=== PATIENT | female | born 1990 | race Caucasian/White ===

== ENCOUNTER 2017-07-01 11:46 | Outpatient (CLI) | payer MEDICAID ==
[~2017-07-01] VITALS: Ht 157.5 cm; Wt 88.4 kg
[2017-07-01 12:42] VITALS: BP 120/80; PULSE 75; RESP 18; Ht 157.5 cm; Wt 88.4 kg
[2017-07-01] MEDS ORDERED: PREN-93 PO (12:46)
[2017-07-01] MEDS ORDERED: LABE100T3 PO (12:46)
[2017-07-01] MEDS ORDERED: ASPI81TA3 PO (12:47)
[2017-07-01] MEDS ORDERED: FER325 PO (12:47)
[2017-07-01 13:12] LABS: ADD UMIC NO; UR ASCORBIC ACID 40 mg/dL (NEGATIVE); UR BILIRUBIN (Dip) NEGATIVE (NEGATIVE); UR BLOOD (Dip) NEGATIVE (NEGATIVE); UR CLARITY SLIGHTLY CLOUDY (CLEAR); UR COLOR YELLOW (YELLOW); UR GLUCOSE (Dip) NEGATIVE (NEGATIVE); UR KETONES (Dip) NEGATIVE (NEGATIVE); UR LEUKOCYTE ESTERASE (Dip) NEGATIVE Leu/ul (NEGATIVE); UR MUCUS FEW /HPF (NONE SEEN); UR NITRITE (Dip) NEGATIVE (NEGATIVE); UR RBC 1 /HPF (0-5); UR SQUAMOUS EPITHELIAL CELL FEW /HPF (FEW); UR TOTAL PROTEIN (Dip) NEGATIVE (NEGATIVE); UR UROBILINOGEN (Dip) NEGATIVE (NEGATIVE)
[2017-07-01 14:29] LABS: BASOPHILS % 0.4 % (0.0-2.0); EOSINOPHILS # 0.1 10^3/ul (0.0-0.5); EOSINOPHILS % 1.1 % (0.0-7.0); HEMATOCRIT 33.6 % (37.0-47.0); HEMOGLOBIN 11.3 g/dl (12.0-16.0); LYMPHOCYTES % 18.3 % (15.0-51.0); MEAN CORPUSCULAR HEMOGLOBIN 29.9 pg (29.0-33.0); MEAN CORPUSCULAR HGB CONC 33.6 g/dl (32.0-37.0); MEAN CORPUSCULAR VOLUME 88.9 fl (82.0-101.0); MONOCYTE # 0.8 10^3/ul (0.3-0.9); MONOCYTES % 7.3 % (0.0-11.0); NEUTROPHIL # 7.6 10^3/ul (1.6-7.5); NEUTROPHILS % 71.3 % (39.0-77.0); PLATELET COUNT 191 10^3/UL (140-415); RED BLOOD COUNT 3.78 10^6/ul (4.20-5.40); RED CELL DISTRIBUTION WIDTH 13.8 % (11.5-14.5); WHITE BLOOD COUNT 10.7 10^3/ul (4.8-10.8)
[2017-07-01 14:49] LABS: INR 0.9; PROTIME 12.2 Sec (11.9-14.9)
[2017-07-01 14:50] LABS: PARTIAL THROMBOPLASTIN TIME 28.1 Sec (25.0-35.0)
[2017-07-01 15:09] LABS: ALBUMIN 3.9 g/dl (3.3-4.9); ALBUMIN/GLOBULIN RATIO 1.14; BILIRUBIN,INDIRECT 0.1 mg/dl (0-1.1); BILIRUBIN,TOTAL 0.1 mg/dl (0.2-1.3); CALCIUM 9.5 mg/dl (8.4-10.2); CREATININE 0.47 mg/dl (0.44-1.00); POTASSIUM 3.6 mmol/L (3.5-5.1); TOTAL PROTEIN 7.3 g/dl (6.1-8.1); URIC ACID 3.5 mg/dl (3.1-7.9)
--- NOTE | 2017-07-01 15:42 | PN ---
Triage Information Date/Time Reason for visit: Sent in from clinic for observation of elevated elevated blood pressure Weeks of Gestation 32 /Para 1 para 0 Diabetes: none Hypertention: essential Additional information Patient transferred her care from [facility] to [facility] Was told she has high blood pressure and was placed on labetalol 100 p.o. twice daily Currently has no symptoms: Denies headache blurred vision or epigastric pain Objective Vital Signs Date Time Temp Pulse Resp B/P Pulse Ox O2 Delivery O2 Flow Rate FiO2 07/01/17 12:42 98.2 75 18 120/80 Room Air Heart Rate: 150's Heart Rate Comments Reactive Exam Deferred Results/Medications Result Diagram: 07/01/17 1415 07/01/17 1415 Results 24 hrs Laboratory Tests Test 07/01/17 12:40 07/01/17 14:15 Urine Color YELLOW Urine Clarity SLIGHTLY CLOUDY A Urine pH 6.0 Urine Specific [place] 1.020 Urine Ketones NEGATIVE Urine Nitrite NEGATIVE Urine Bilirubin NEGATIVE Urine Urobilinogen NEGATIVE Urine Leukocyte Esterase NEGATIVE Urine Microscopic RBC 1 Urine Microscopic WBC 1 Urine Squamous Epithelial Cells FEW Urine Calcium Oxalate Crystals FEW A Urine Mucus FEW A Urine Hemoglobin NEGATIVE Urine Glucose NEGATIVE Urine Total Protein NEGATIVE White Blood Count 10.7 Red Blood Count 3.78 L Hemoglobin 11.3 L Hematocrit 33.6 L Mean Corpuscular Volume 88.9 Mean Corpuscular Hemoglobin 29.9 Mean Corpuscular Hemoglobin Concent 33.6 Red Cell Distribution Width 13.8 Platelet Count 191 Mean Platelet Volume 11.0 H Neutrophils % 71.3 Lymphocytes % 18.3 Monocytes % 7.3 Eosinophils % 1.1 Basophils % 0.4 Nucleated Red Blood Cells % 0.0 Neutrophils # 7.6 H Lymphocytes # 2.0 Monocytes # 0.8 Eosinophils # 0.1 Basophils # 0.0 Nucleated Red Blood Cells # 0.0 Prothrombin Time 12.2 Prothrombin Time Ratio 1.0 INR International Normalized Ratio 0.90 Activated Partial Thromboplast Time 28.1 Sodium Level 139 Potassium Level 3.6 Chloride Level 104 Carbon Dioxide Level 24 Anion Gap 15 Blood Urea Nitrogen 6 L Creatinine 0.47 Glucose Level 83 Uric Acid 3.5 Calcium Level 9.5 Total Bilirubin 0.1 L Direct Bilirubin 0.00 Indirect Bilirubin 0.1 Aspartate Amino Transf (AST/SGOT) 21 Alanine Aminotransferase (ALT/SGPT) 30 Alkaline Phosphatase 134 H Total Protein 7.3 Albumin 3.9 Globulin 3.40 H Albumin/Globulin Ratio 1.14 Medications Labetalol 100 p.o. twice daily Imaging Results Pending Disposition: Discharge Assessment/Plan We will discharge patient home on bed and pelvic rest Start antepartum testing Continue labetalol at home Referred back for symptoms of headache blurred vision or epigastric pain and/or not feeling well MARIBELL FLOYD MD Jul 01, 2017 15:42
--- NOTE | 2017-07-01 16:25 | RADRPT ---
PROCEDURE: US OB. CLINICAL INDICATION: induced hypertension. TECHNIQUE: Multiple sonographic images of the uterus were obtained. Transvaginal sonogra phy of the cervix was also performed. The images were reviewed on a PACS workstation. COMPARISON: No prior studies are available for comparison. FINDINGS: There is a single live intrauterine gestation. heart rate is 150 beats per minute. Measurements were made in order to determine age. The results are as follows: BPD = 8.24 cm. HC = 29.47 cm. AC = 30.38 cm. FL = 6.32 cm. Estimated weight is 2227 +/- 334 grams. LMP growth percentile is 80%. Cervical length is 3.8 cm. Menstrual age by ultrasound dates is 33 weeks 1 day. The estimated date of delivery is 08/18/2017. Position is cephalic and placenta is anterior grade 1. There is no evidence for an abruption or plac enta previa. IMPRESSION: 1. Single live intrauterine gestation of 33 weeks 1 day menstrual age by ultrasound dates. 2. The estimated date of delivery is 08/18/2017. RPTAT: QQ .Eddie Saravia MD, Date Time Electronically viewed and signed by .Eddie Saravia MD, on 07/01/2017 16:24 .R/
== END 2017-07-01 17:15 | disposition home or self-care (01) ==
LOC: OBT 11:46 → L-D 11:46 → OBT 17:15
PROVIDERS: ATTEND Obstetrics & Gynecology
DX: O26.893 Other specified pregnancy related conditions, third trimester (principal); Z3A.32 32 weeks gestation of pregnancy; R03.0 Elevated blood-pressure reading, without diagnosis of hypertension
CPT/HCPCS: 76815; 76817; 80053; 81001; 81003; 84560; 85025; 85610; 85730

== ENCOUNTER 2017-08-13 09:53 | Inpatient (IN) | END 2017-08-18 18:35 | disposition home or self-care (01) | DRG 768 ==

== ENCOUNTER 2018-01-24 19:21 | Emergency (ER) | END 2018-01-24 20:45 | disposition home or self-care (01) ==

== ENCOUNTER 2018-05-15 17:10 | Emergency (ER) | END 2018-05-15 20:33 | disposition home or self-care (01) ==

== ENCOUNTER 2018-05-16 04:15 | Emergency (ER) | END 2018-05-16 17:32 | disposition home or self-care (01) ==

== ENCOUNTER 2019-04-11 17:05 | Emergency (ER) | payer MEDICAID ==
[~2019-04-11] VITALS: Ht 162.6 cm; Wt 86.5 kg
[~2019-04-11 17:05] MED LIST: ACET325T33 PO; CEPH-443 PO; CLIN300C10 PO; FER325 PO; IBUP-1542 PO; IBUP-1561 PO; LABE100T7 PO; PREN-93 PO; SULF1TAB31 PO
[2019-04-11 17:24] VITALS: Ht 162.6 cm; Wt 86.5 kg
[2019-04-11] MEDS ORDERED: LIDOCAINE 1% (MPF) 5 ML VIAL INFIL ONE (18:30)
[2019-04-11] MEDS ORDERED: LIDOCAINE 4% CR TOP ONE (18:30)
[2019-04-11 19:53] VITALS: BP 146/82; PULSE 80; RESP 18
== END 2019-04-11 19:53 | disposition home or self-care (01) ==
LOC: FTE 17:05
DX: K61.0 Anal abscess (principal); I10 Essential (primary) hypertension
CPT/HCPCS: 46040; Z7502